=== PATIENT | male | born 1990 ===

== ENCOUNTER 2018-03-10 22:23 | Emergency (ER) | payer SELFPAY ==
[~2018-03-10] VITALS: Ht 167.6 cm; Wt 72.6 kg
[2018-03-10 22:31] VITALS: TEMP 36.9; Ht 167.6 cm; Wt 72.6 kg
[2018-03-10] MEDS ORDERED: ONDANSETRON INJ 2 MG/ML 2 ML VIAL IV STA (23:17)
[2018-03-10] MEDS ORDERED: LIDOCAINE HCL 2% VISC SOLN 20 ML UDC PO STA (23:17)
[2018-03-10] MEDS ORDERED: ALUMINUM/MAGNESIUM SUSP 30 ML UDC PO STA (23:17)
[2018-03-10] MEDS ORDERED: SODIUM CHLORIDE 0.9% 1000ML 1,000 ML IV STA (23:17)
[2018-03-10 23:44] LABS: BASO % 0.7 %; BASO ABS # 0.06 K/uL (0-0.2); EOS % 0.8 %; EOS ABS # 0.07 K/uL (0-0.5); HEMATOCRIT 40.2 % (42-52); HEMOGLOBIN 13.3 g/dL (14.0-18.0); IG# 0.01 K/uL (0.00-0.02); LYMPH ABS # 2.42 K/uL (1.2-3.4); MEAN CELL VOLUME 74.3 fL (80-100); MEAN CORPUSCULAR HEMOGLOBIN 24.6 pg (25-34); MEAN CORPUSCULAR HGB CONC 33.1 g/dl (32-36); MEAN PLATELET VOLUME 10.5 fL (7.4-10.4); MONO % 6.4 %; MONO ABS # 0.53 K/uL (0.11-0.59); NEUT ABS # 5.25 K/uL (1.4-6.5); PLATELET COUNT 194 K/uL (130-400); RED CELL DISTRIBUTION WIDTH CV 13.8 % (11.5-14.5); RED CELL DISTRIBUTION WIDTH SD 37.1 fL (36.4-46.3); WHITE BLOOD COUNT 8.34 K/uL (4.8-10.8)
[2018-03-11 00:02] LABS: ALBUMIN 4.1 gm/dl (3.4-5.0); CALCIUM 9.2 mg/dl (8.5-10.1); CREATININE 1.08 mg/dl (0.60-1.40); POTASSIUM 3.5 mmol/L (3.5-5.1)
[2018-03-11 00:05] LABS: TOTAL PROTEIN 7.3 gm/dl (6.4-8.2)
[2018-03-11] MEDS ORDERED: OPTIRAY 320 IV PRN (01:30)
[2018-03-11 02:42] VITALS: BP 126/86; PULSE 64; O2SAT 100
[2018-03-11] MEDS ORDERED: ONDANSETRON HOME PACK 4MG OD TAB PO ONE (02:45)
--- NOTE | 2018-03-11 03:32 | EMERGENCY ROOM VISIT NOTE ---
History First contact with patient: 22:52 Chief Complaint: ABDOMINAL PAIN Stated Complaint: NOT FEELING WELL Nursing Triage Summary: pt c/o stomach pain. states it began 40 minutes ago. reports feeling "bloated and full." pt alert and oriented x4. pt speaks mongolian, some maltese. History of Present Illness The patient is a 27 year old male who presents to the Emergency Room with complaints of right upper quadrant pain for the past hour after eating fried chicken and pork with rice and having a few beers and smoking cigarettes. He describes the pain as bloating, ranging severity 5 out of 10. Nothing makes it better or worse. It does not radiate. He complains of nausea without vomiting or diarrhea. Patient denies chest pain, dyspnea, fever, chills, back pain, leg pain or swelling, urinary symptoms. Patient is Cambodian-speaking and the client experience administrator line was used. Review of Systems An 10 system review of systems was completed with positives and pertinent negatives listed in the HPI. Past Medical/Surgical History None Social History Smoking Status: Current Every Day Smoker Smokeless Tobacco Use: No Alcohol Use: occasionally Drug Use: none Marital Status: single Occupation Status: employed Current/Historical Medications No Active Prescriptions or Reported Meds Physical Exam Vital Signs Date Time Temp Pulse Resp B/P (MAP) Pulse Ox O2 Delivery O2 Flow Rate FiO2 03/11/18 02:42 64 18 126/86 100 03/11/18 01:49 61 16 118/70 98 Room Air 03/11/18 00:58 70 24 139/70 100 Room Air 03/10/18 23:38 70 16 119/72 100 Room Air 03/10/18 22:31 36.9 80 18 114/72 100 Room Air Physical Exam VITALS: Vitals are noted on the nurse's note and reviewed by myself. Vital signs stable. GENERAL: Pleasant male, in no acute distress, nondiaphoretic, well-developed well-nourished. SKIN: The skin was without rashes, erythema, edema, or bruising. There is no tenting of the skin. Capillary reflex less than 2 seconds. HEAD: Normocephalic atraumatic. EARS: External auditory canals clear, tympanic membranes pearly kohli without erythema or effusion bilaterally. EYES: Pupils equal round and reactive to light and accommodation. Conjunctivae without injection, sclerae without icterus. Extraocular movements intact. NOSE: Patent, turbinates without inflammation or discharge. MOUTH: Mucous membranes moist. Pharynx without erythema or exudate. Uvula midline. Airway patent. Tongue does not deviate. NECK: Supple without nuchal rigidity. No lymphadenopathy. No thyromegaly. Cervical spine is nontender. No JVD. HEART: Regular rate and rhythm without murmurs gallops or rubs. LUNGS: Clear to auscultation bilaterally without wheezes, rales or rhonchi. No retractions or accessory muscle use. ABDOMEN: Positive bowel sounds x 4. Normal tympanic percussion. Soft, tender to palpation right upper and lower quadrants, without masses or organomegaly. No guarding or rebound tenderness. No CVA tenderness MUSCULOSKELETAL: No muscle atrophy, erythema, or edema noted. NEURO: Patient was alert and oriented to person place and time. Normal sensation to light and sharp touch. No focal neurological deficits. Medical Decision & Procedures Laboratory Results 03/10/18 23:32 Red Blood Count 5.41, Mean Corpuscular Volume 74.3, Mean Corpuscular Hemoglobin 24.6, Mean Corpuscular Hemoglobin Concent 33.1, Mean Platelet Volume 10.5, Neutrophils (%) (Auto) 63.0, Lymphocytes (%) (Auto) 29.0, Monocytes (%) (Auto) 6.4, Eosinophils (%) (Auto) 0.8, Basophils (%) (Auto) 0.7, Neutrophils # (Auto) 5.25, Lymphocytes # (Auto) 2.42, Monocytes # (Auto) 0.53, Eosinophils # (Auto) 0.07, Basophils # (Auto) 0.06 03/10/18 23:32 Test 03/10/18 23:32 White Blood Count 8.34 K/uL (4.8-10.8) Red Blood Count 5.41 M/uL (4.7-6.1) Hemoglobin 13.3 g/dL (14.0-18.0) Hematocrit 40.2 % (42-52) Mean Corpuscular Volume 74.3 fL (80-100) Mean Corpuscular Hemoglobin 24.6 pg (25-34) Mean Corpuscular Hemoglobin Concent 33.1 g/dl (32-36) Platelet Count 194 K/uL (130-400) Mean Platelet Volume 10.5 fL (7.4-10.4) Neutrophils (%) (Auto) 63.0 % Lymphocytes (%) (Auto) 29.0 % Monocytes (%) (Auto) 6.4 % Eosinophils (%) (Auto) 0.8 % Basophils (%) (Auto) 0.7 % Neutrophils # (Auto) 5.25 K/uL (1.4-6.5) Lymphocytes # (Auto) 2.42 K/uL (1.2-3.4) Monocytes # (Auto) 0.53 K/uL (0.11-0.59) Eosinophils # (Auto) 0.07 K/uL (0-0.5) Basophils # (Auto) 0.06 K/uL (0-0.2) RDW Standard Deviation 37.1 fL (36.4-46.3) RDW Coefficient of Variation 13.8 % (11.5-14.5) Immature Granulocyte % (Auto) 0.1 % Immature Granulocyte # (Auto) 0.01 K/uL (0.00-0.02) Red Blood Cell Morphology Unremarkable Anion Gap 4.0 mmol/L (3-11) Est Creatinine Clear Calc Drug Dose 92.7 ml/min Estimated GFR () 108.4 Estimated GFR (Non- 93.6 BUN/Creatinine Ratio 10.5 (10-20) Calcium Level 9.2 mg/dl (8.5-10.1) Total Bilirubin 0.5 mg/dl (0.2-1) Direct Bilirubin 0.1 mg/dl (0-0.2) Aspartate Amino Transf (AST/SGOT) 20 U/L (15-37) Alanine Aminotransferase (ALT/SGPT) 32 U/L (12-78) Alkaline Phosphatase 116 U/L (45-117) Total Protein 7.3 gm/dl (6.4-8.2) Albumin 4.1 gm/dl (3.4-5.0) Lipase 89 U/L (73-393) Medications Administered Medications (Trade) Dose Ordered Sig/Morelia Route Start Time Stop Time Status Last Admin Dose Admin Lidocaine HCl (Viscous Lidocaine 2% Soln) 10 ml NOW STAT PO 03/10/18 23:17 03/10/18 23:19 DC 03/10/18 23:35 10 ML Al Hydroxide/Mg Hydroxide (Maalox Susp) 30 ml NOW STAT PO 03/10/18 23:17 03/10/18 23:19 DC 03/10/18 23:35 30 ML Sodium Chloride 1,000 ml @ 999 mls/hr Q1H1M STAT IV 03/10/18 23:17 03/11/18 00:17 DC 03/10/18 23:34 999 MLS/HR Ondansetron HCl (Zofran Inj) 4 mg NOW STAT IV 03/10/18 23:17 03/10/18 23:19 DC 03/10/18 23:34 4 MG Ondansetron HCl (ZOFRAN ODT 4MG Home Pack) 1 homepack UD ONCE PO 03/11/18 02:45 03/11/18 02:46 DC 03/11/18 02:42 1 HOMEPACK ED Course Prior records/ancillary studies reviewed. Triage Nursing notes reviewed. Additional history obtained from coworker. The patient's history was concerning for abdominal pain. Differential diagnosis: Etiologies such as appendicitis, diverticulitis, PUD, biliary pathology, UTI, pancreatitis, obstruction, mesenteric ischemia, aortic pathology, infections, inflammatory bowel disease, renal colic, as well as others were entertained. Physical examination findings: As above. ER treatment provided: GI cocktail, IV fluids On reassessment the patient felt better. Diagnostics interpreted by me: The labs revealed mild anemia. No leukocytosis. No worrisome electrolyte abnormality Imaging studies: Ultrasound negative for acute cholecystitis CT abdomen pelvis with normal appendix. Exam and history seem consistent with right-sided abdominal pain that is now resolved. He felt better after the GI cocktail. He did not have acute abdomen on exam. No leukocytosis. He was tolerating fluids. He was advised to do a bland diet for the next few days and follow-up with family care or here in the ER sooner for abdominal pain, fevers, vomiting, worsening signs or symptoms or as needed. The language line was used to obtain a history and go over results. By the evaluation outlined above emergent etiologies such as appendicitis, diverticulitis, PUD, biliary pathology, UTI, pancreatitis, obstruction, mesenteric ischemia, aortic pathology, infections, inflammatory bowel disease, renal colic, as well as others were deemed relatively unlikely. The pt informed about the findings as listed above. All questions were answered and pleased with the treatment. Return instructions were outlined and the patient was discharged in stable condition. Outpatient prescription management: Zofran Referral: The patient was referred back to their primary care physician for follow-up in 2 to 3 days for a recheck of the current condition. Case reviewed with my attending The chart was completed utilizing [employer] voice recognition software. Grammatical errors, random word insertions, pronoun errors, and incomplete sentences are an occassional consequence of this system due to software limitations, ambient noise, and hardware issues. Any formal questions or concerns about the content, text, or information contained within the body of this dictation should be directly addressed to the physician academic assistant for clarification. Medical Decision As above Medication Reconcilliation Current Medication List: was personally reviewed by me Blood Pressure Screening Patient's blood pressure: Normal blood pressure Impression Primary Impression: Right lower quadrant abdominal pain Additional Impressions: Right upper quadrant abdominal pain Anemia Departure Information Dispostion Home / Self-Care Condition GOOD Prescriptions No Active Prescriptions or Reported Meds Forms HOME CARE DOCUMENTATION FORM, Work Instructions, Return To Work: 1 day IMPORTANT VISIT INFORMATION Patient Instructions Abdominal Pain - [facility] Additional Instructions Usted es levemente anmico. Seguimiento con arevalo mdico de cabecera para esto. No conduzca, angelica alcohol, opere maquinaria o realice actividades peligrosas hoy en da. Se le administraron medicamentos en la beni de emergencias que pueden afectar arevalo capacidad para funcionar o operar un vehculo con seguridad. Se puede usar ibuprofeno (Motrin, Advil) para la fiebre o el dolor. Use 600mg cada seis horas segn sea necesario. Homa con comida. Evite usar ms de 2400mg en un perodo de 24 horas. No use 2400mg por da por ms de sandra lee consecutivos sin la direccin del mdico. Un uso inapropiado prolongado puede causar malestar estomacal o lceras. (y/o) Se puede usar acetaminofn (Tylenol) para la fiebre o el dolor. Use 1000 mg cada seis horas segn sea necesario. Evite usar ms de 3000mg en un perodo de 24 horas. Zofran 4mg: tome gildardo cada seis horas segn sea necesario para la nusea. Evite el alcohol, la maquinaria de operacin o el equipo peligroso, trabajando en escaleras o techos, conduciendo, o situaciones en las que estar bajo la influencia puede ser peligroso. Descanse y angelica muchos lquidos sary se tolera. Se recomiendan sorbos lentos de agua o bebidas deportivas en lugar de grandes cantidades de gildardo annamaria vez. Contine con los medicamentos actuales. Gildardo vez que arevalo estmago se resuelva comience con gildardo dieta lquida frederick ( gelatina, caldo de sopa, etc.) y despus avance segn lo tolerado. Usted debe evitar comidas completas y pesadas monet unas 24 horas desde el momento en que tona sntomas se resolvieron. Vuelva a la beni de emergencias inmediatamente para empeorar o dolor abdominal persistente, vmitos, fiebre, waldemar en el pecho, dificultad para respirar, heces negras o sanguinolentas, empeoramiento de arevalo condicin o segn sea necesario. El seguimiento con arevalo mdico primario en 1-2 lee para gildardo revisin de arevalo condicin actual. Work Instructions Return To Work: 1 day Problem Qualifiers
--- NOTE | 2018-03-11 07:20 | DIAGNOSTIC IMAGING REPORT ---
ABDOMINAL ULTRASOUND, RIGHT UPPER QUADRANT HISTORY: Right upper quadrant abdominal pain.. COMPARISON: None. FINDINGS: Pancreas: The pancreatic head and tail are obscured by overlying bowel gas. The remaining portions of the pancreas are within normal limits. Liver: Unremarkable. Gallbladder: No gallbladder wall thickening. No gallstones. The gallbladder is contracted. CBD: 3 mm. Right kidney: No hydronephrosis. IMPRESSION: No significant abnormality identified within the right upper quadrant. Electronically signed by: Jose Francisco Stevenson M.D. 03/11/2018 7:19 AM Dictated Date/Time: 03/11/2018 7:18 AM
--- NOTE | 2018-03-11 07:45 | DIAGNOSTIC IMAGING REPORT ---
ABDOMEN AND PELVIS CT WITH IV CONTRAST CT DOSE: 558.42 mGycm HISTORY: Right lower quadrant pain. TECHNIQUE: Multiaxial CT images of the abdomen and pelvis were performed following the use of intravenous contrast. A dose lowering technique was utilized adhering to the principles of ALARA. COMPARISON STUDY: Abdominal ultrasound 03/11/2018. FINDINGS: The lung bases are clear. No pneumoperitoneum. No pneumatosis. No fractures within the visualized osseous structures. The liver, gallbladder, spleen, adrenal glands, pancreas, and kidneys are unremarkable. No retroperitoneal lymphadenopathy. No hydronephrosis. Focal dilatation within the distal left ureter which measures up to 1.5 cm in diameter. No definite bowel wall thickening or obstruction. Questionable thickening of the proximal sigmoid colon is likely due to underdistention. Normal appendix. IMPRESSION: 1. Questionable thickening of the proximal sigmoid colon is likely due to underdistention. 2. Normal appendix. 3. Focal dilatation within the distal left ureter. This is of uncertain clinical significance. Electronically signed by: Jose Francisco Stevenson M.D. 03/11/2018 7:44 AM Dictated Date/Time: 03/11/2018 7:34 AM
== END 2018-03-11 02:43 | disposition home or self-care (01) ==
LOC: C.EDB 22:24 → C.EDC 03-11 02:43
DX: R10.11 Right upper quadrant pain (principal); R10.31 Right lower quadrant pain; D64.9 Anemia, unspecified; F17.210 Nicotine dependence, cigarettes, uncomplicated